=== PATIENT | female | born 1935 | race Caucasian/White ===

== ENCOUNTER 2017-12-25 10:52 | Outpatient (CLI) | payer OTHER, SELFPAY ==
[2017-12-25] VITALS (15 sets, daily range): BP systolic 109–170; BP diastolic 61–93; PULSE 74–93; RESP 16–20; TEMP 36.3; O2SAT 96–100
--- NOTE | 2017-12-25 10:57 | DI.RAD.S_ITS ---
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 Appropriate location(s) of the needle tip(s) was confirmed by injection of iodinated contrast. IMPRESSION: The stated laterality and level noted above corresponds to prior plain film imaging of the lumbosacral spine and what appear to be thin metallic pre-existing structures near the L4-5 disc space. This is correlated with the image / S4 from the 07/05/16 study. The needle tip localization is appear to be near the facet/neural foraminal border on the left at L4-5 and L5-S1 levels respectively. Dictated by: James Morales M.D. on 12/26/2017 at 9:58 Approved by: James Morales M.D. on 12/26/2017 at 10:09
--- NOTE | 2017-12-25 11:36 | P.PCN_ITS ---
Procedures Date/Time Date of procedure: 12/25/17 Time of procedure: 11:35 General Procedure description: PREOP DIAGNOSIS 1. RECALCITRANT FACET ARTHROPATHY, POST OP DIAGNOSIS 1. RECALCITRANT FACET ARTHROPATHY, PROCEDURES 1. RIGHT L4 AND L5 MEDIAL BRANCH RADIOFREQUENCY NEUROTOMY AND RIGHT S1 DORSAL RAMUS BRANCH RADIOFREQUENCY NEUROTOMY, SURGEON: Kvng Patel, DO INDICATIONS Cassy is referred by for treatment of facet arthropathy. DESCRIPTION OF PROCEDURE Right L5 medial branch radiofrequency neurotomy and right S1 dorsal ramus branch radiofrequency neurotomy under fluoroscopy with conscious sedation. The patient is well known to this clinic having undergone previous facet injections with good but temporary relief. The patient has experienced appropriate, concordant relief with previous facet and median branch blocks but the patient's pain has been recalcitrant to further conservative measures. Therefore, based upon the patient's relief and persistent symptoms, the patient is considered an appropriate candidate for facet rhizotomy. All of the patient' s questions regarding the risks versus benefits of the procedure, including, but not limited to, bleeding, infection, temporary as well as lasting nerve injury, paralysis, stroke, and , as well treatment alternatives were answered to satisfaction. After review of previous anaesthesic history and IV conscious sedation the patient was deemed safe to proceed with todays procedure with IV conscious sedation as ASA class II designation. Safety time-out was performed to confirm patient ID, procedure to be performed and site of procedure. IV sedation was accomplished with a combination of 5mg of Versed was administered by the RN after DO order, titrated to patient comfort during the course of the procedure while the patient remained responsive to all verbal commands. After obtaining informed consent, denial of pertinent drug allergies, as well as being made aware of the potential risks of bleeding, infection, spinal cord trauma, paralysis, temporary and permanent nerve damage, seizure, stroke, and possible , the patient was brought to the fluoroscopy suite and positioned prone on the fluoroscopy table. The lumbar region was prepped with Betadine and covered with a fenestrated drape in the usual sterile fashion. Appropriate monitors applied including pulse oximeter, pulse, and blood pressure for regular monitoring throughout the procedure. After local infiltration using 1% lidocaine, under fluoroscopic guidance, a 10- cm RF insulated needle with a 10-mm active tip was positioned parallel to the junction of the right sacral ala and the superior articulating process where the S1 dorsal ramus resides. Needle placement was confirmed with sensory stimulation at 50 Hz, with motor stimulation of .5v on the right which produced local stimulation without radicular component. The stimulation was then increased to 1.5v with, once again, only local multifidus stimulation without radicular component. This was then followed by two discreet lesions performed at 80 degrees Celsius for 90 seconds each. The needle was then removed and the identical procedure was performed along the length of the right L5 medial branch with motor stimulation at .7v on the right. The patient was then transferred to the recovery area where they were observed for an appropriate period of time after the injection. The patient reported a VAS score of 9 prior to the procedure and a post-procedure VAS of 0. Total Fluoroscopy Time: 31 seconds Total Conscious Sedation Time: 45min POST OP INSTRUCTIONS The patient was provided a Pain Log to continue to record the patient's response to the target-specific procedure prior to the patient's follow-up visit with the referring physician. Additionally, specific post-injection care instructions and a contact number to our office were provided if concerns arise regarding possible complications associated with the procedure are suspected. Kvng Patel, Complications: none
[2017-12-25] MEDS: MIDAZOLAM 5 MG/5 ML VIAL IV (11:58)
[2017-12-25] MEDS: BUPIVACAINE 0.5% (PF) VIAL 5 ML INJ (12:02)
[2017-12-25] MEDS: LIDOCAINE 1% 20 ML INJ 10 ML INJ (12:02)
== END 2017-12-25 13:06 ==
PROVIDERS: PCP Family Medicine; Visit Provider Physical Medicine & Rehabilitation
DX: M47.816 Spondylosis without myelopathy or radiculopathy, lumbar region (principal)
CPT/HCPCS: 64635; 99152; 99153; J2250